=== PATIENT | male | born 1955 | race Caucasian/White ===

== ENCOUNTER 2021-01-24 05:36 | Outpatient (RCR) | payer BC ==
[~2021-01-24] VITALS: Ht 188 cm; Wt 93.2 kg
[~2021-01-24 05:36] MED LIST: ASPI-999 PO; FENO43CA6 PO; METO-351 PO; PANT40SU PO
== END 2021-01-24 13:45 | disposition home or self-care (01) ==
LOC: PREOP 05:36
PROVIDERS: ATTEND Surgery
DX: Z01.812 Encounter for preprocedural laboratory examination (principal); Z12.11 Encounter for screening for malignant neoplasm of colon; K21.9 Gastro-esophageal reflux disease without esophagitis; Z20.822 Contact with and (suspected) exposure to COVID-19
CPT/HCPCS: 87635

== ENCOUNTER 2021-01-28 07:39 | Day surgery (SDC) | payer BC ==
[2021-01-28] VITALS (8 sets, daily range): BP systolic 107–138; BP diastolic 66–91
[~2021-01-28] VITALS: Ht 188 cm; Wt 93.2 kg
[2021-01-28] MEDS ORDERED: LACTATED RINGERS 1,000 ML IV STA (07:53)
[2021-01-28] MEDS ORDERED: HURRICAINE EXT TUBE (BENZOCAINE) XX PRN (08:00)
[2021-01-28] MEDS ORDERED: LACTATED RINGERS 1,000 ML IV ONE (08:01)
[2021-01-28] MEDS ORDERED: MIDAZOLAM 2 MG/2 ML (VERSED) VIAL ONE (09:35)
[2021-01-28] MEDS ORDERED: PROPOFOL INJECTION 50 ML IV ONE (09:36)
--- NOTE | 2021-01-28 10:11 | Progress Note-Post Operative ---
Post-Operative Progess Note Surgeon (s)/[facility] Attendant (s) Surgeon AILYN GILLESPIE DO [facility] Hospital Attendant: na Pre-Operative Diagnosis gerd, screening colonoscopy Post-Operative Diagnosis diverticulosis, mucosal change esophagus Procedure & Operative Findings Date of Procedure 01/28/21 Procedure Performed/Findings egd c biopsies, colonoscopy Anesthesia Type per pallet stone positioner Estimated Blood Loss Estimated blood loss (mL): none Specimens/Packing Specimens Removed antrum, ge, mid esophagus AILYN GILLESPIE DO Jan 28, 2021 10:11
--- NOTE | 2021-01-28 10:12 | Discharge Inst-Simple/Standard ---
Discharge Inst-Standard Patient Instructions/Follow Up Plan of Care/Instructions/FU: 2 weeks [place] Activity as Tolerated: Yes Discharge Diet: Regular Diet (high fiber) AILYN GILLESPIE DO Jan 28, 2021 10:12
--- NOTE | 2021-01-28 14:14 | Anesthesia-General Post-Op ---
MAC Patient Condition Mental Status/LOC: Same as Preop Cardiovascular: Satisfactory Nausea/Vomiting: Absent Respiratory: Satisfactory Pain: Controlled Complications: Absent Post Op Complications Complications None Follow Up Care/Instructions Patient Instructions None needed. Anesthesiology Discharge Order Discharge Order Patient is doing well, no complaints, stable vital signs, no apparent adverse anesthesia problems. No complications reported per nursing. CHRISTOPHER CHRIS SAMPLER FIRST Jan 28, 2021 14:14
--- NOTE | 2021-01-28 14:25 | OPERATIVE REPORT ---
DATE OF SERVICE: 01/28/2021 PREOPERATIVE DIAGNOSES: Gastroesophageal reflux disease, screening colonoscopy. POSTOPERATIVE DIAGNOSIS: Diverticulosis. Mucosal change esophagus. PROCEDURE: EGD with biopsies, colonoscopy. SURGEON: Ailyn Duque DO ANESTHESIA: Per FINE PATCHER. ESTIMATED BLOOD LOSS: None. COMPLICATIONS: None. SPECIMENS: Antrum, GE junction and esophagus. INDICATIONS: The patient is a 66-year-old male needing screening colonoscopy and GERD symptoms. He understands risks and benefits of procedure and wished to proceed with procedure. Consent was signed in the chart. DESCRIPTION OF PROCEDURE: The patient was taken to the endoscopy suite, placed in left lateral recumbent position. Timeout was performed. Scope was inserted in mouth, down the esophagus, stomach and into the duodenum without difficulty. There were no polyps, masses or ulcerations within the duodenum. Scope was slowly retracted back to stomach where it was further insufflated. No polyps, masses or ulcerations. No erythematous changes. Biopsy of the antrum was obtained. Scope was retroflexed noting no other pathology. Scope was returned to its normal position, slowly withdrawn to distal esophagus. Biopsy of the GE junction was obtained. No polyps, masses or ulcerations. Scope was slowly retracted back approximately the mid esophagus, maybe a little bit more proximal. There were some mucosal changes present. Biopsies were obtained. Scope was then slowly retracted back until completely removed. Digital rectal exam was performed. There were no palpable polyps, masses or ulcerations. Scope was inserted in the rectum and advanced all the way to cecum with minimal difficulty. Prep was adequate. Scope was then slowly retracted back. There were no polyps, masses or ulcerations within the cecum, ascending, transverse, descending and sigmoid colon. In sigmoid colon, there was a moderate amount of diverticulosis present. Scope was then continuously retracted back in the rectum, it was also retroflexed noting no other pathology. Scope was returned to its normal position, slowly withdrawn until completely removed. The patient tolerated procedure well without any complications, taken to recovery room in stable condition. RECOMMENDATIONS: The patient recommended high fiber diet due to diverticulosis. We will continue on current medications. We would recommend high fiber diet for the diverticulosis. The patient will need repeat colonoscopy in 10 years. Any issues before that be seen at that time. The patient will follow up on biopsies in 2 weeks in the office to further discuss. Job ID: [id number] DocumentID: [id number] Dictated Date: 01/28/2021 10:15:07 Gas Well Pumper Date: 01/28/2021 14:23:19 Dictated By: AILYN DUQUE DO
== END 2021-01-28 10:45 | disposition home or self-care (01) ==
LOC: ENDO 07:39
PROVIDERS: ATTEND Surgery
DX: Z12.11 Encounter for screening for malignant neoplasm of colon (principal); K21.00 Gastro-esophageal reflux disease with esophagitis, without bleeding; K22.8 Other specified diseases of esophagus; K57.30 Diverticulosis of large intestine without perforation or abscess without bleeding; Z79.899 Other long term (current) drug therapy; Z79.82 Long term (current) use of aspirin; Z79.02 Long term (current) use of antithrombotics/antiplatelets; Z82.49 Family history of ischemic heart disease and other diseases of the circulatory system
CPT/HCPCS: 88305

== ENCOUNTER → 2021-04-17 | Outpatient (CLI) | payer BC ==
[~2021-04-17] MED LIST changes: +CATHETER FLUSH 10 ML SYR IV PRN
[2021-04-17 09:04] VITALS: BP 126/79
--- NOTE | 2021-04-17 17:34 | NUCLEAR STRESS TEST ---
TREADMILL NUCLEAR STRESS TEST Date of procedure: 04/17/2021. Primary care provider: Luis Dunaway MD. Admitting physician: Yovanny Sanders Jr., MD. INDICATION: Ventricular tachycardia. BASELINE ELECTROCARDIOGRAM: Sinus bradycardia at 54 bpm with first-degree AV block, otherwise unremarkable tracing. STRESS TEST PROCEDURE: The patient was exercised for a total of 10 minutes and 19 seconds of the standard Sam protocol achieving a maximum MET level of 11.9. The resting heart rate was 54 bpm and the peak heart rate was 158 bpm, which represents 101% of the maximum predicted heart rate. The resting blood pressure was 126/79 mmHg and the peak blood pressure was 211/112 mmHg. This represents a normal heart rate and a hypertensive blood pressure response to exercise. The test was stopped due to fatigue. There was no chest discomfort during the test. There were no arrhythmias during the test. There were no significant stress induced electrocardiogram changes. The patient exhibited excellent exercise capacity for age. NUCLEAR PROCEDURE: The patient was administered 11 mCi of intravenous technetium 99m Tetrofosmin at rest for the rest images. The patient was subsequently administered 31.7 mCi of intravenous technetium 99 M Tetrofosmin at peak stress for the stress images. Following an appropriate wait after each injection, imaging was obtained. The images were subsequently processed and reformatted in the usual views. Gated imaging was obtained. The image quality was adequate b ut with a mild degree of gastrointestinal and motion artifacts. CT attenuation correction was used as a adjunct to standard imaging. Both the corrected and uncorrected images were reviewed for interpretation. NUCLEAR RESULTS: There was normal myocardial perfusion in all segments without evidence of infarction or ischemia. There was normal left ventricular chamber size with an end-diastolic volume of 75 mL and an end-systolic volume of 26 mL. There was no evidence of transient ischemic dilatation. The TID ratio was 0.99. There was normal wall motion in all segments with a calculated ejection fraction of 66%. IMPRESSION: 1. Normal heart rate and a hypertensive blood pressure response to exercise. 2. There was no exercise-induced chest discomfort, arrhythmias, or electrocardiogram changes during the test. 3. The patient exhibited excellent exercise capacity for age at 10 minutes and 19 seconds of the Sam protocol. 4. There was normal myocardial perfusion in all segments without evidence of infarction or ischemia. 5. There was normal wall motion in all segments with a calculated ejection fraction is 66%. Certain portions of this document may have been dictated utilizing voice recognition technology. Inherent to this technology, typographical and gr ammatical errors may exist. As much as I am diligent to identify and correct these mistakes, some errors may remain in the document. YOVANNY SANDERS JR, MD Apr 17, 2021 17:34
== END ==
LOC: CARD 08:15
PROVIDERS: ATTEND Internal Medicine Cardiovascular Disease
DX: I47.2 Ventricular tachycardia (principal)
CPT/HCPCS: 78452; 93017; A9502